=== PATIENT | male | born 1990 | race Caucasian/White ===

== ENCOUNTER 2024-06-16 20:17 | Emergency (ER) | payer OTHER ==
[~2024-06-16] VITALS: Ht 172.7 cm; Wt 83.9 kg
[2024-06-16 21:18] LABS: BASOPHILS ABSOLUTE AUTO 0.05 K/mm3 (0.00-0.23); BASOPHILS PERCENT AUTO 0 % (0-2); EOSINOPHILS ABSOLUTE AUTO 0.15 K/mm3 (0.00-0.68); EOSINOPHILS PERCENT AUTO 1 % (0-6); Hematocrit 43.6 % (37.0-53.0); Hemoglobin 14.9 g/dL (13.5-17.5); IMMATURE GRAN ABSOLUTE AUTO 0.04 K/mm3 (0.00-0.10); IMMATURE GRAN PERCENT AUTO 0 % (0-1); LYMPHOCYTES ABSOLUTE AUTO 1.16 K/mm3 (0.84-5.20); LYMPHOCYTES PERCENT AUTO 8 % (21-46); MONOCYTES ABSOLUTE AUTO 1.33 K/mm3 (0.16-1.47); MONOCYTES PERCENT AUTO 9 % (4-13); Mean Corpuscular HGB Conc 34.2 g/dL (31.5-36.5); Mean Corpuscular Volume 88 fL (80-100); Mean Platelet Volume 10.8 fL (9.1-12.4); NEUTROPHILS PERCENT AUTO 81 % (41-73); Platelet Count 219 K/mm3 (150-400); RDW Coefficient Variation 12.2 % (11.7-14.2); RDW Standard Deviation 39.3 fL (35.1-46.3); Red Blood Cell Count 4.97 M/mm3 (4.30-5.90); White Blood Cell Count 14.63 K/mm3 (4.00-11.30)
[2024-06-16] MEDS ORDERED: BUPROPION XL150 M1 PO (21:30)
[2024-06-16 21:45] LABS: Albumin/Globulin Ratio 1.1 (0.8-1.8); Bilirubin, Total 0.7 mg/dL (0.1-1.0); Bun/Creatinine Ratio 13.8 (12.0-20.0); Calcium, Blood 9.4 mg/dL (8.5-10.1); Creatinine, Blood 1.09 mg/dL (0.60-1.20); Globulin, Blood 3.6 g/dL (2.2-4.0); Potassium, Blood 3.9 mmol/L (3.5-5.5); Total Protein, Blood 7.6 g/dL (6.4-8.2)
[2024-06-16] MEDS ORDERED: Ampicillin Sod/Sulbactam Sod 3 GM in NS 100 ML IV ONE (22:10)
[2024-06-16 23:30] VITALS: BP 146/93
[2024-06-16] MEDS ORDERED: Lidocaine 2% Viscous Soln 15 ML UDC PO ONE (23:30)
[2024-06-16] MEDS ORDERED: Ketorolac Tromethamine 15mg Vial IV ONE (23:30)
[2024-06-17] MEDS ORDERED: AMOCLA250S PO (00:02)
== END 2024-06-17 00:15 | disposition home or self-care (01) ==
LOC: ER 20:17
PROVIDERS: Physician Assistant
DX: J34.9 Unspecified disorder of nose and nasal sinuses (principal); Z79.899 Other long term (current) drug therapy
CPT/HCPCS: 36415; 70491; 80053; 83605; 85025; 96365; 96375; 99284-25; A9270; J0295; J1885; Q9967